=== PATIENT | male | born 1965 | race Caucasian/White ===

== ENCOUNTER 2017-09-14 06:16 | Day surgery (SDC) | payer OTHER ==
[~2017-09-14] VITALS: Ht 190.5 cm; Wt 180.3 kg
[2017-09-14 06:51] VITALS: BP 138/68; PULSE 71; TEMP 98.1
[2017-09-14] MEDS ORDERED: MOTRIN 400400 MG/TAB PO (06:59)
[2017-09-14] MEDS ORDERED: LEXAPRO 10MG10 MG PO (07:07)
[2017-09-14 08:20] VITALS: BP 135/84; PULSE 68; TEMP 97.6
[2017-09-14 08:30] VITALS: BP 140/86; PULSE 67
[2017-09-14 08:45] VITALS: BP 140/86; PULSE 71
[2017-09-14 16:55] VITALS: BP 111/67; PULSE 69
== END 2017-09-14 08:55 | disposition home or self-care (01) ==
LOC: SDCO 06:16
DX: Z12.11 Encounter for screening for malignant neoplasm of colon (principal); K63.5 Polyp of colon; K57.30 Diverticulosis of large intestine without perforation or abscess without bleeding
CPT/HCPCS: OP; J2250; J3010; J7030